=== PATIENT | female | born 1990 | race American Indian/Alaskan Native ===

== ENCOUNTER 2016-07-20 01:30 | Outpatient (CLI) | payer BC ==
[2016-07-20] MEDS ORDERED: TYLENOL ONE (02:43)
[2016-07-20 02:51] VITALS: BP 112/72
[2016-07-20] MEDS ORDERED: TYLENOL PO ONE (02:54)
== END 2016-07-20 03:53 | disposition home or self-care (01) ==
LOC: TRG 01:30
PROVIDERS: ATTEND Obstetrics & Gynecology
DX: O26.892 Other specified pregnancy related conditions, second trimester (principal); M54.9 Dorsalgia, unspecified; R10.9 Unspecified abdominal pain; Z3A.22 22 weeks gestation of pregnancy